=== PATIENT | male | born 1955 | race Caucasian/White ===

== ENCOUNTER 2024-01-16 07:45 | Day surgery (SDC) | payer MEDICARE, OTHER ==
[~2024-01-16] VITALS: Ht 180.3 cm; Wt 110.4 kg
--- NOTE | 2024-01-16 06:59 | NUR ---
01/16/24 0659 Kathy Zuleta MAC WITH DRE GIL. SEE ANESTHESIA RECORDS.
[~2024-01-16 07:45] MED LIST: AMLO10 PO; ATOR40TA PO; CARV25 PO; CHLO25B PO; CILO100 PO; CLOP75 PO; LISI20 PO; METF500 PO
[2024-01-16] MEDS ORDERED: NS 500 ML IV SCH (07:55)
[2024-01-16 08:17] VITALS: BP 132/80
--- NOTE | 2024-01-16 08:24 | NUR ---
Ambulatory in Day Surgery. History, Chart, Medications and Allergies reviewed before start of procedure. Lungs clear T/O to Auscultation. Patient confirms NPO status and agrees with scheduled surgery. Pre-Op teaching done. Pt verbalizes understanding. Patient States Post-Procedure ride home has been arranged.
[2024-01-16] MEDS ORDERED: propofoL 40 ML IV ONE (08:37)
[2024-01-16 09:15] VITALS: BP 90/66
[2024-01-16 09:36] VITALS: BP 104/77
[2024-01-16 09:39] VITALS: BP 123/68
--- NOTE | 2024-01-16 09:52 | NUR ---
Discharge instructions reviewed with patient. Patient verbalizes understanding. Copy given to patient to take home. Patient States Post-Procedure ride home has been arranged. Discharged via wheelchair to private car for ride home.
== END 2024-01-16 09:50 | disposition home or self-care (01) ==
LOC: ORSCMMR 07:45 → ORD 09:00 → ORSCMMR 09:00
PROVIDERS: Internal Medicine Gastroenterology
PROC: 0DBP8ZX Excision of Rectum, Via Natural or Artificial Opening Endoscopic, Diagnostic (ICD-10-PCS; principal; 2024-01-16 09:00)
PROC: 0DBN8ZX Excision of Sigmoid Colon, Via Natural or Artificial Opening Endoscopic, Diagnostic (ICD-10-PCS; principal; 2024-01-16 09:00)
PROC: 0DBM8ZX Excision of Descending Colon, Via Natural or Artificial Opening Endoscopic, Diagnostic (ICD-10-PCS; principal; 2024-01-16 09:00)
DX: Z12.11 Encounter for screening for malignant neoplasm of colon (principal); D12.4 Benign neoplasm of descending colon; D12.5 Benign neoplasm of sigmoid colon; K63.5 Polyp of colon; K62.1 Rectal polyp; E11.9 Type 2 diabetes mellitus without complications; G47.33 Obstructive sleep apnea (adult) (pediatric); I10 Essential (primary) hypertension; J44.9 Chronic obstructive pulmonary disease, unspecified; E78.00 Pure hypercholesterolemia, unspecified; I73.9 Peripheral vascular disease, unspecified; E66.01 Morbid (severe) obesity due to excess calories; Z68.34 Body mass index [BMI] 34.0-34.9, adult; Z79.02 Long term (current) use of antithrombotics/antiplatelets; Z79.84 Long term (current) use of oral hypoglycemic drugs; Z79.899 Other long term (current) drug therapy; F17.210 Nicotine dependence, cigarettes, uncomplicated
CPT/HCPCS: 82947; 88305; J2704; J7040

== ENCOUNTER 2024-12-20 00:23 | Day surgery (SDC) | payer MEDICARE, OTHER | END 2024-12-20 23:00 | disposition home or self-care (01) | LOC: WOUND 00:23 | DX: E11.622 Type 2 diabetes mellitus with other skin ulcer (principal); L97.322 Non-pressure chronic ulcer of left ankle with fat layer exposed; I87.2 Venous insufficiency (chronic) (peripheral); E11.51 Type 2 diabetes mellitus with diabetic peripheral angiopathy without gangrene; I10 Essential (primary) hypertension; F17.200 Nicotine dependence, unspecified, uncomplicated; Z88.5 Allergy status to narcotic agent | CPT/HCPCS: G0463 ==

== ENCOUNTER 2024-12-26 00:16 | Day surgery (SDC) | payer MEDICARE, OTHER | END 2024-12-26 23:00 | disposition home or self-care (01) | LOC: WOUND 00:16 | DX: E11.622 Type 2 diabetes mellitus with other skin ulcer (principal); L97.322 Non-pressure chronic ulcer of left ankle with fat layer exposed; I87.2 Venous insufficiency (chronic) (peripheral); E11.51 Type 2 diabetes mellitus with diabetic peripheral angiopathy without gangrene; I10 Essential (primary) hypertension ==

== ENCOUNTER 2025-01-02 00:19 | Day surgery (SDC) | payer MEDICARE, OTHER ==
[2025-01-02] MEDS ORDERED: Lidocaine HCl 4% Cream 5 GM ONE (08:09)
== END 2025-01-02 23:00 | disposition home or self-care (01) ==
LOC: WOUND 00:19
DX: E11.622 Type 2 diabetes mellitus with other skin ulcer (principal); I10 Essential (primary) hypertension; E11.51 Type 2 diabetes mellitus with diabetic peripheral angiopathy without gangrene; L97.322 Non-pressure chronic ulcer of left ankle with fat layer exposed
CPT/HCPCS: A9270

== ENCOUNTER 2025-01-16 02:01 | Day surgery (SDC) | payer MEDICARE, OTHER ==
[2025-01-16] MEDS ORDERED: Lidocaine HCl 4% Cream 5 GM ONE (08:00)
== END 2025-01-16 23:00 | disposition home or self-care (01) ==
LOC: WOUND 02:01
DX: E11.622 Type 2 diabetes mellitus with other skin ulcer (principal); L97.322 Non-pressure chronic ulcer of left ankle with fat layer exposed; I87.2 Venous insufficiency (chronic) (peripheral); E11.51 Type 2 diabetes mellitus with diabetic peripheral angiopathy without gangrene; Z88.8 Allergy status to other drugs, medicaments and biological substances
CPT/HCPCS: A9270